=== PATIENT | female | born 1970 | race Caucasian/White ===

== ENCOUNTER 2024-10-09 09:03 | Outpatient (CLI) | payer BC, SELFPAY ==
--- NOTE | 2024-10-09 09:13 | EST_ITS ---
Patient Info Name: Ayaka Grayson Age: 54 years : 1970 Gender: Female Ht: 65 in Wt: 149 lbs BSA: 1.77 m2 Exam Date: 10/09/2024 9:13 AM Patient Status: O Admit Date: 10/09/2024 Exam Type: CA stress test treadmill A treadmill exercise stress test was performed. Staff Attending Provider: Marjorie Meza Exercise Technologist: Martita Byrnes Exercise Physician: Vivek Spicer DO Summary 1. 1. Negative Sachin exercise stress test for ischemic ST changes by ECG criteria. 2. 2. Good functional capacity, achieving 10 METs of workload. 3. 3. Baseline hypertension with hypertensive response to exercise. 4. 4. Appropriate HR response to exercise. 5. 5. Appropriate HR recovery at 1 minute post exercise. 6. 6. No imaging with stress testing. 7. 7. Patient informed of the above results. Protocol: Sachin Stress ECG Details Stage: REST Duration (min): 0 min : 50 sec Speed (mph): 0.0 Grade (%): 0 HR (bpm): 66 SBP (mmHg): 141 DBP (mmHg): 90 METS: --- Stage: REST Duration (min): 4 min : 3 sec Speed (mph): 0.0 Grade (%): 0 HR (bpm): 83 SBP (mmHg): 141 DBP (mmHg): 90 METS: --- Stage: STAGE 1 Duration (min): 1 min : 0 sec Speed (mph): 1.7 Grade (%): 10 HR (bpm): 105 SBP (mmHg): 141 DBP (mmHg): 90 METS: --- Stage: STAGE 1 Duration (min): 2 min : 0 sec Speed (mph): 1.7 Grade (%): 10 HR (bpm): 113 SBP (mmHg): 141 DBP (mmHg): 90 METS: --- Stage: STAGE 1 Duration (min): 3 min : 0 sec Speed (mph): 1.7 Grade (%): 10 HR (bpm): 113 SBP (mmHg): 187 DBP (mmHg): 74 METS: --- Stage: STAGE 2 Duration (min): 1 min : 0 sec Speed (mph): 2.5 Grade (%): 12 HR (bpm): 129 SBP (mmHg): 187 DBP (mmHg): 74 METS: --- Stage: STAGE 2 Duration (min): 2 min : 0 sec Speed (mph): 2.5 Grade (%): 12 HR (bpm): 139 SBP (mmHg): 176 DBP (mmHg): 74 METS: --- Stage: STAGE 2 Duration (min): 3 min : 0 sec Speed (mph): 2.5 Grade (%): 12 HR (bpm): 144 SBP (mmHg): 176 DBP (mmHg): 74 METS: --- Stage: STAGE 3 Duration (min): 1 min : 0 sec Speed (mph): 3.4 Grade (%): 14 HR (bpm): 150 SBP (mmHg): 206 DBP (mmHg): 81 METS: --- Stage: STAGE 3 Duration (min): 2 min : 0 sec Speed (mph): 3.4 Grade (%): 14 HR (bpm): 153 SBP (mmHg): 206 DBP (mmHg): 81 METS: --- Stage: STAGE 3 Duration (min): 2 min : 0 sec Speed (mph): 3.4 Grade (%): 14 HR (bpm): 153 SBP (mmHg): 206 DBP (mmHg): 81 METS: --- Stage: RECOVERY Duration (min): 0 min : 59 sec Speed (mph): 0.0 Grade (%): 0 HR (bpm): 117 SBP (mmHg): 193 DBP (mmHg): 82 METS: --- Stage: RECOVERY Duration (min): 1 min : 59 sec Speed (mph): 0.0 Grade (%): 0 HR (bpm): 100 SBP (mmHg): 193 DBP (mmHg): 82 METS: --- Stage: RECOVERY Duration (min): 2 min : 59 sec Speed (mph): 0.0 Grade (%): 0 HR (bpm): 102 SBP (mmHg): 151 DBP (mmHg): 84 METS: --- Stage: RECOVERY Duration (min): 3 min : 59 sec Speed (mph): 0.0 Grade (%): 0 HR (bpm): 103 SBP (mmHg): 151 DBP (mmHg): 84 METS: --- Stage: RECOVERY Duration (min): 4 min : 59 sec Speed (mph): 0.0 Grade (%): 0 HR (bpm): 102 SBP (mmHg): 157 DBP (mmHg): 80 METS: --- Stage: RECOVERY Duration (min): 5 min : 59 sec Speed (mph): 0.0 Grade (%): 0 HR (bpm): 93 SBP (mmHg): 157 DBP (mmHg): 80 METS: --- Stage: RECOVERY Duration (min): 6 min : 55 sec Speed (mph): 0.0 Grade (%): 0 HR (bpm): 105 SBP (mmHg): 143 DBP (mmHg): 83 METS: --- Rest HR: 83 bpm Peak HR: 154 bpm Rest Sys BP: 141 mmHg Peak Sys BP: 206 mmHg Max Pred HR: 166 bpm % Max Pred HR: 93 % Target HR: 141 bpm Max RPP: 31,724 bpm*mmHg Retana Score: 4 BP Response: Patient exhibited a hypertensive response with stress Termination Reason: Reached target heart rate or workload Cardiac Symptoms: Shortness of breath Max ST Seg Deviation: 0.80 mm Total Time: 8 min : 0 sec Rest Martinez BP: 90 mmHg Peak Martinez BP: 81 mmHg Angina Score: None Total METS: 10.3 Resting ECG Sinus rhythm. Stress ECG No ST changes. Arrhythmias None. Report Signatures
--- OUTSIDE RECORDS SUMMARY | 2024-10-09 09:21 | XMS_ITS | Clinical Summary ---
Author Organization [place] [id number] [facility] Address [address] [place] [address] Care Team Providers Care Artillery Maintenance Supervisor Name Role Phone Isabell Garcia MD Primary Care Provider + Family History Medical History Relation Name Comments Hypertension Father Family history of hypertension - (Added by TW Conv) Relation Name Status Comments Father Social History Tobacco Use Types Packs/Day Years Used Date Smoking Tobacco: Never Comments Unknown Sex and Gender Information Value Date Recorded Sex Assigned at Not on file Legal Sex Female 12:41 AM BUSINESS FUNCTIONAL ANALYST Gender Identity Not on file Sexual Orientation Not on file Obstetrics History Plan of Treatment Health Maintenance Due Date Last Done Comments Cervical Cancer Screening 1970 Colon Cancer Screening-Colonoscopy 1970 Depression Screening 1970 Hepatitis C Screening 1970 DTaP/Tdap/Td Vaccine (1 - Tdap) 1981 Hepatitis B Screening 1988 Regular Well Visit/Exam 18-64 1988 Zoster Vaccine (1 of 2) 2020 Influenza Vaccine (#1) 2024 Breast Cancer Screening-Mammogram 05/14/2025 05/14/2024, 05/14/2023, 05/11/2022, Additional history exists Pneumococcal vaccine <65 Aged Out No longer eligible based on patient's age to complete this topic Procedures Procedure Name Priority Date/Time Associated Diagnosis Comments SCREENING MAMMOGRAM BILATERAL W SHEBA Schedule Routine, Read Routine (OP Routine) 05/14/2024 10:03 AM BUSINESS FUNCTIONAL ANALYST Screening mammogram, encounter for from Last 3 Months or Most Recently Relevant to Health Maintenance Results * Screening Mammogram Bilateral [place] (05/14/2024 10:03 AM BUSINESS FUNCTIONAL ANALYST) Anatomical Region Laterality Modality Breast Bilateral Mammography Narrative 05/14/2024 1:36 PM BUSINESS FUNCTIONAL ANALYST Mammogram Technique: Bilateral Digital Breast Tomosynthesis, Bilateral C-view 2D Screening mammogram. Views obtained: bilateral craniocaudal and bilateral mediolateral oblique. Computer Aided Detection was performed. Mammogram Findings: The present examination has been compared to prior imaging studies performed at [facility] on 05/02/2021, 05/11/2022 and 05/14/2023. The breasts are extremely dense, which lowers the sensitivity of mammography. There is no suspicious abnormality in either breast. Impression: There is no mammographic evidence of malignancy. Annual screening mammography is recommended. Consider breast MRI for supplemental screening given the patient's extremely dense breast tissue. OVERALL FINAL ASSESSMENT: BI-RADS CATEGORY 1: Negative. Procedure Note Mariam Villalobos MD - 05/14/2024 Mammogram Technique: Bilateral Digital Breast Tomosynthesis, Bilateral C-view 2D Screening mammogram. Views obtained: bilateral craniocaudal and bilateral mediolateral oblique. Computer Aided Detection was performed. Mammogram Findings: The present examination has been compared to prior imaging studies performed at [facility] on 05/02/2021, 05/11/2022 and 05/14/2023. The breasts are extremely dense, which lowers the sensitivity of mammography. There is no suspicious abnormality in either breast. Impression: There is no mammographic evidence of malignancy. Annual screening mammography is recommended. Consider breast MRI for supplemental screening given the patient's extremely dense breasttissue. OVERALL FINAL ASSESSMENT: BI-RADS CATEGORY 1: Negative. us Self Screening Mammogram IMG MAMMO PROCEDURES Fi nal Result from Last 3 Months or Most Recently Relevant to Health Maintenance Insurance [facility] OPEN ACCESS [facility] [employer] Care Teams Artillery Maintenance Supervisor Relationship Specialty Start Date End Date Isabell Garcia MD [address] [id number] PCP - General 03/02/17
--- OUTSIDE RECORDS SUMMARY | 2024-10-09 09:21 | XMS_ITS | Referral Summary ---
Author Organization [place] [id number] [facility] Address [address] [place] [address] Care Team Providers Care Rand Butter Name Role Phone Isabell Garcia MD Primary Care Provider + Social History Tobacco Use Types Packs/Day Years Used Date Smoking Tobacco: Never Comments Unknown Sex and Gender Information Value Date Recorded Sex Assigned at Not on file Legal Sex Female 12:41 AM COMMUNITY ASSISTANT Gender Identity Not on file Sexual Orientation Not on file Plan of Treatment Not on file Procedures Procedure Name Priority Date/Time Associated Diagnosis Comments SCREENING MAMMOGRAM BILATERAL W SHEBA Schedule Routine, Read Routine (OP Routine) 05/14/2024 10:03 AM COMMUNITY ASSISTANT Screening mammogram, encounter for from Last 3 Months or Most Recently Relevant to Health Maintenance Results * Screening Mammogram Bilateral W [place] (05/14/2024 10:03 AM COMMUNITY ASSISTANT) Anatomical Region Laterality Modality Breast Bilateral Mammography Narrative 05/14/2024 1:36 PM COMMUNITY ASSISTANT Mammogram Technique: Bilateral Digital Breast Tomosynthesis, Bilateral C-view 2D Screening mammogram. Views obtained: bilateral craniocaudal and bilateral mediolateral oblique. Computer Aided Detection was performed. Mammogram Findings: The present examination has been compared to prior imaging studies performed at [facility] on 05/02/2021, 05/11/2022 and 05/14/2023. The breasts [...] compared to prior imaging studies performed at [facility] on 05/02/2021, 05/11/2022 and 05/14/2023. The breasts [...] Most Recently Relevant to Health Maintenance Insurance [employer] OPEN ACCESS [employer] BLUE ACCESS [employer] ACCESS AR Care Teams Rand Butter Relationship Specialty Start Date End Date Isabell Garcia MD [address] [place] [id number] PCP - General 03/02/17
--- NOTE | 2024-10-09 09:37 | ECG_ITS ---
Test Date: 2024-10-09 10:08:24 Measurements Intervals [place] Rate: 69 P: 6 MD: 162 QRS: 64 QRSD: 88 T: 30 QT: 406 QTc: 437 Interpretive Statements SINUS RHYTHM NORMAL ECG No previous ECG available for comparison Electronically Signed On 10-10-2024 06:22:53 CDT by Vivek Spicer D.O.
== END 2024-10-09 09:04 | disposition home or self-care (01) ==
PROVIDERS: PCP Nurse Practitioner Family; Visit Provider Nurse Practitioner Family
DX: R68.89 Other general symptoms and signs (principal); Z82.49 Family history of ischemic heart disease and other diseases of the circulatory system; R00.2 Palpitations
CPT/HCPCS: 93005; 93017

== ENCOUNTER 2025-01-27 11:22 | Outpatient (CLI) | payer BC, SELFPAY ==
--- NOTE | ~2025-01-27 | US_ITS ---
EXAMINATION: US transvaginal, 01/27/2025 11:24 CLINICAL RESEARCH SCIENTIST HISTORY: Post menopausal bleeding Comparison: None Technique: Chiu-scale and color Doppler images were obtained. Findings: Uterus: Uterus anteverted 8 x 3.8 x 4.5 cm. . Endometrium 4.2 mm. Right Ovary:Right ovary not identified. Left Ovary: Left ovary not identified. Free Fluid: None Impression: No etiology to explain the patient's symptoms Reviewed, dictated and finalized at location P. ICAL RESEARCH SCIENTIST Impression: No etiology to explain the patient's symptoms
== END 2025-01-27 11:23 | disposition home or self-care (01) ==
LOC: MICIMG 11:23
PROVIDERS: PCP Nurse Practitioner; Visit Provider Nurse Practitioner
DX: N95.0 Postmenopausal bleeding (principal)
CPT/HCPCS: 76830

== ENCOUNTER 2025-02-23 00:23 | Day surgery (SDC) | payer BC, SELFPAY ==
[2025-02-18 13:24] VITALS: BMI 25.0
--- NOTE | 2025-02-19 13:14 | SUR.PREOP ---
[facility] has started construction of its new state of the art ER which will open Spring 2026. With this, we anticipate parking may be a challenge for some our surgical patients and families. Parking spaces are limited but are available for all Surgical, obstetrics, and ER patients sharing this lot. If you arrive and find you are having a hard time finding a parking space, please note that we understand the challenges, please drive around the hospital and park near Hospital Entrance 1. When you enter this entrance, you can ask a volunteer to direct or take you back to the surgical waiting area to check in. We appreciate everyone?s understanding of these expected challenges while we build for your future. Report to the Outpatient Waiting Room, entrance under the green pavilion located off [address], at time ___7am____ on date ___02/23/25____. Planned Procedure Time: ____9am____.? Time changes happen often and if your time is changed the preop area will call you the afternoon before. - You and your visitor will be asked to self-screen and do not enter if you have any COVID symptoms. Please call surgeon if you need to reschedule. - A mask is optional within the hospital at this time. Patients may have clear liquids (water, carbonated beverages, clear teas, apple juice) until 3 hours prior to surgery with a maximum of 20 ounces. - No food from midnight until time of surgery and no smoking, or chewing tobacco (or any form nicotine). No chewing gum, candy or mints. Take only the following medications with a SIP of water on the morning of surgery: NA DO NOT STOP ANY OF YOUR OTHER PRESCRIPTION MEDICATIONS PRIOR TO SURGERY EXCEPT THE FOLLOWING Hold all vitamins and supplements for 3 days per anesthesiologist. Medications to discontinue per physician NA Date to take last dose Please no make-up, nail romansh, hairspray, perfume, deodorant, or body powder the day of surgery.? No jewelry (including any body piercings) or valuables the day of surgery, leave them at home.? Please take a shower or bath the night before, or the morning of, surgery with an antibacterial soap.? Wear comfortable, loose fitting clothing.? Children are encouraged to wear pajamas. - Jewelry must be removed prior to entering the operating room.? Rings and piercings that are not removed may be cut off. - The hospital will not accept responsibility for valuables.? - Please leave all valuables, including medications, at home the day of surgery. If you are going home after surgery, a licensed jitney driver must drive you home.? - NO public transportation without another adult if you receive anesthesia. - We recommend that an adult stay with you for 24 hours following discharge. - We also recommend that you do not drive, make important decision, drink alcoholic beverages, or take any drugs that were not prescribed by your health care provider for at least 24 hours after your discharge time. For Pediatric surgeries, we recommend two adults accompany the child home. Follow any additional instructions given to you from your surgeon. Telephone instructions given to patient and asked if any additional questions and then verbalized understanding. Patient advised to call surgeon office or pre surgery nurse liaison [phone] if any additional questions.
--- NOTE | 2025-02-23 07:42 | WPDANESEPPF ---
Anes - Initial Pre Proc Eval Procedure: Operation Date: 02/23/25 09:00 Proposed Procedures p Hysteroscopy Dilation and Curettage - Isabell Garcia MD Date/Time: 02/23/25 07:42 Surgeon: Isabell Garcia MD Pre Op Diagnosis: post menopausal bleeding Patient Data Age: 54 Gender: F Height: 1.65 m Weight: 68.2 kg Allergies Allergy/AdvReac Type Severity Reaction Status Date / Time prednisone Allergy ITCHING Verified 02/18/25 13:06 Home Medications ?Medication ?Instructions ?Recorded ?Confirmed ?Type B-complex with vitamin C (Super 1 cap PO DAILY 09/23/24 02/18/25 History B/C capsule) albuterol sulfate 90 mcg/actuation 1 - 2 inh inhalation Q4-6H PRN 09/23/24 02/18/25 Rx aerosol inhaler (Ventolin HFA) shortness of breath or wheezing #8.5 grams progesterone micronized 200 mg 200 mg PO QHS 09/23/24 02/18/25 History capsule BIEST 0.5 g topical DAILY 02/18/25 02/18/25 History Patient hx anesthesia problems: none Family hx anesthesia problems: none Results Review: All pre-operative results and documents have been reviewed as part of the pre-operative evaluation. [facility] Past Medical History Medical History Family history of heart disease Decreased exercise tolerance Fluttering sensation of heart Wheezing Seasonal allergies Encounter to establish care Surgical History Surgical History Hx of cholecystectomy 2007 H/O thumb surgery History of elbow surgery left elbow 2018 History of back surgery C3-C4 disc replacement 2020 Family History Family History Father Hypertension Mother Hypertension Heart disease Sibling Hypertension Social History Social History Smoking status: Never smoker Alcohol intake: current Drinks per week: 5 Substance use: never Living arrangements: with family Spiritual care concerns: No Anes - Eval Final PreProcedure Day of Procedure 02/23/25 07:42 Patient weight: normal Heart: regular rate and rhythm Lungs: clear to auscultation Airway: Mallampati scale class II Neurological: alert and oriented Last oral intake: >/= 8 hours ASA classification: II Emergent: no Anesthetic plan: proceed Anesthesia type and monitoring: general GIVS and standard monitoring Results Review: All pre-operative results and documents have been reviewed as part of the pre-operative evaluation. Informed Consent: The patient's anesthetic plan and its attendant risks and benefits were discussed with the patient/family/POA. Questions were solicited and answers provided to the satisfaction of the patient/family/POA.
--- NOTE | 2025-02-23 07:51 | P.HP_ITS ---
History of Present Illness History of Present Illness Consent: Risks, benefits, and alternatives have been discussed and questions answered. Patient agrees to proceed with procedure. Chief complaint: post menopausal bleeding Narrative: Ayaka Grayson is a 54 year old female with 4 days light vaginal bleeding accompanied by cramping. Patient has started hormone replacement therapy through a clinic in [place], [place] in March 2024. Pelvic ultrasound was performed showing a slightly thickened endometrium. It was recommended to undergo D&C hysteroscopy the risks of infection, bleeding, perforation, and possible pathology are reviewed. Patient voices understanding and agrees to proceed. 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 History of hysteroscopy 2013 Hx of cholecystectomy 2007 H/O thumb surgery History of elbow surgery left elbow 2017 History of back surgery C3-C4 disc replacement 2020 Family History Family History Father Hypertension Mother Hypertension Heart disease Sibling Hypertension Social History Social History Smoking status: Never smoker Alcohol intake: current Drinks per week: 5 Substance use: never Living arrangements: with family Spiritual care concerns: No Meds Home Medications and Allergies Home Medications ?Medication ?Instructions ?Recorded ?Confirmed ?Type B-complex with vitamin C (Super 1 cap PO DAILY 5 02/18/25 History B/C capsule) albuterol sulfate 90 mcg/actuation 1 - 2 inh inhalatio n Q4-6H PRN 09/23/24 02/18/25 Rx aerosol inhaler (Ventolin HFA) shortness of breath or wheezing #8.5 grams progesterone micronized 200 mg 200 mg PO QHS 09/23/24 02/18/25 History capsule BIEST 0.5 g topical DAILY 02/18/25 02/18/25 History Allergies Allergy/AdvReac Type Severity Reaction Status Date / Time prednisone Allergy ITCHING Verified 02/18/25 13:06 Exam Const: General: healthy appearing and alert Orientation/consciousness: patient oriented x3 Resp: Effort & Inspection: normal respiratory effort Auscultation: clear to auscultation bilaterally Cardio: Rate: regular rate Rhythm: regular rhythm GI: GI Palp: Yes Soft to palpation, No Tenderness to palpation present (GI) and No Palpable mass present : External Female Exam: normal external appearance Speculum Exam - Vagina: normal appearance of the vagina and normal vaginal discharge Speculum Exam - Cervix: normal appearance of the cervix Bimanual exam- vagina & uterus: uterine size normal and consistency normal Bimanual Exam- Adnexa, other: normal adnexae and No adnexal tenderness Neuro: General: patient oriented x3 Assessment and Plan Assessment and plan (1) Post-menopausal bleeding: Code(s): N95.0 - Postmenopausal bleeding Status: Acute Assessment and Plan: Plan to proceed with D&C hysteroscopy
--- NOTE | 2025-02-23 07:51 | WPDHPUPDATE1 ---
History and Physical Update Update Date/Time: 02/23/25 07:51 History and Physical has been reviewed, including an updated exam of the patient. There are NO changes in the patient's condition. Risks, benefits, and alternatives have been discussed and questions answered. Patient agrees to proceed with procedure.
[2025-02-23] MEDS: LACTATED RINGERS 1,000 ML 30 ML IV CONT (08:00)
[2025-02-23] MEDS: ACETAMINOPHEN 500 MG TABLET 1000 MG PO (08:00)
[2025-02-23 08:19] VITALS: BP 139/88; PULSE 86; TEMP 36.9; O2SAT 99; BMI 25.5
--- NOTE | 2025-02-23 08:57 | S_PTH ---
PATIENT: Ayaka Grayson LOC: [facility] U#:[id number] AGE/SX: 54/F ROOM: RE02/23/[address]: Isabell Garcia MD : 1970 BED: DIS: 02/23/2025 SPEC #: [id number] RECD: 02/23/25 10:04 STATUS: TEMI REQ #: [id number] CHERRI: 02/23/25 08:[address]: Isabell Garcia DEPT: [facility] Surgical RECD BY: Nicole Farias ENTERED: 02/23/25 10:05 SP TYPE: Surgical OTHR DR: Sudhir Munoz MD Tissues: A - Endometrial Curettings Procedures: Hematoxylin and Eosin Stain Gross and Microscopic Level 4
[2025-02-23 09:05] VITALS: BP 139/78; PULSE 94; O2SAT 95
--- NOTE | 2025-02-23 09:06 | W.PM.PROC2 ---
Procedure Note - Detailed Date of Procedure 02/23/25 Pre-op Diagnosis post menopausal bleeding Post-op Diagnosis Same Procedure Performed D&C hysteroscopy Surgeon Isabell Garcia MD Anesthesia MAC Findings External cervical stenosis. The uterus sounds to 8cm and appears grossly normal. Description of Procedure The patient was taken to the operating room and placed under anesthesia in the dorsal lithotomy position. She was prepped and draped in the usual sterile fashion. [place] speculum was placed in the vagina and the cervix grasped on the anterior lip with tenaculum. There was an indentation where the external os is located. The small Hegar dilator was used to open the external os. The cervix was then serially dilated to a 5 Hegar. The uterus is sounded to 8 cm. The diagnostic hysteroscope was placed and with the above-stated findings it was removed. The endometrium was curetted with a sharp curette until a good uterine cry was noted in all areas. Instruments are removed. Sponge, needle, and instrument counts are correct per the OR staff. The patient was taken to recovery in stable condition. Estimated Blood Loss 5 Drains No Packing No Pathology Yes (Endometrial curettings) Complications No immediate complications Condition Stable Disposition PACU
[2025-02-23 09:35] VITALS: BP 151/75; PULSE 66
[2025-02-23 09:59] VITALS: BP 164/78; PULSE 70
== END 2025-02-23 10:00 | disposition home or self-care (01) ==
PROVIDERS: PCP Family Medicine; Referring Provider Nurse Practitioner; Visit Provider Obstetrics & Gynecology Gynecology
PROC: 0U5B8ZZ Destruction of Endometrium, Via Natural or Artificial Opening Endoscopic (ICD-10-PCS; CPT 58563; principal; 2025-02-23 09:00)
DX: N88.2 Stricture and stenosis of cervix uteri (principal); Z79.51 Long term (current) use of inhaled steroids; Z79.890 Hormone replacement therapy; Z98.890 Other specified postprocedural states; Z90.49 Acquired absence of other specified parts of digestive tract; Z98.1 Arthrodesis status; Z82.49 Family history of ischemic heart disease and other diseases of the circulatory system
CPT/HCPCS: 58558; 88305; A9270; J2704; J3010; J7120